=== PATIENT | male | born 1965 | race Caucasian/White ===

== ENCOUNTER → 2021-01-28 | Outpatient (CLI) | payer MEDICAID ==
--- NOTE | 2021-01-30 14:24 | US ---
EXAMINATION TYPE: US kidneys/renal and bladder DATE OF EXAM: 01/28/2021 COMPARISON: NONE CLINICAL HISTORY: 55-year-old male N02.9 recurrent hematuria. TECHNIQUE: Multiple sonographic images of the kidneys and bladder are obtained. FINDINGS: EXAM MEASUREMENTS: Right Kidney: 10.0 x 3.6 x 4.2 cm Left Kidney: 11.5 x 5.6 x 5.3 cm Right Kidney: echogenic lesion measuring 1.2 x 1.1 x 0.9cm not seen on 02/13/2013. Small echogenic st ructure measuring 0.4 x 0.3 x 0.4cm at the upper pole. No hydronephrosis. Dr. Hogue Left Kidney: anechoic area central upper pole measuring 2.5 x 1.6 x 1.7cm, likely parapelvic cyst. No hydronephrosis. Bladder: Partial distention of the bladder limits its evaluation. There is a shadowing dependent hype rechoic structure within measuring 2.7cm IMPRESSION: 1. Shadowing echogenic structure within the bladder measures 2.7 cm, likely bladder calculus. 2. A 4 mm nonobstructive right renal calculus. In addition, there is a 1.2 cm cortical lesion within the right kidney not seen on the 2013 ultrasound. Given the echogenicity, an AML is possible. A hemor rhagic cyst or small early RCC are not excluded at this time. Recommend 3 month follow-up renal mass protocol CT or MRI for further evaluation. 3. No hydronephrosis.
== END | disposition home or self-care (01) ==
LOC: RADUSWWP 13:57
PROVIDERS: ATTEND Family Medicine
DX: N20.0 Calculus of kidney (principal)
CPT/HCPCS: 76770

== ENCOUNTER → 2021-02-15 | Outpatient (CLI) | payer MEDICAID ==
--- NOTE | 2021-02-15 14:51 | CT ---
EXAMINATION TYPE: CT urogram wo/w con DATE OF EXAM: 02/15/2021 COMPARISON: None HISTORY: H/O left flank pain and hematuria x1 month ago. CT DLP: 952.0 mGycm CONTRAST: Performed and without and with IV Contrast, patient injected with 100ml mL of Isovue 300. CT Urography was performed with unenhanced followed by enhanced images of the kidneys, ureters and ur inary bladder. Delayed images were obtained. 3d reconstruction was performed at a separate work sta tion. FINDINGS: KIDNEYS/BLADDER: No hydronephrosis. No nephrolithiasis. There is poor visualization of the left ure ter throughout the course of the examination. Simple appearing cyst midpole right kidney measures 1.2 cm. Mild renal parenchymal thinning upper pole right kidney. Urinary bladder grossly unremarkable. LUNG BASES-: No visible nodule. No infiltrate. LIVER/GB: No calcified gallstones. No space occupying hepatic lesion. Biliary tree is of normal ca liber. PANCREAS: No inflammation. No distinct mass. SPLEEN: No splenic enlargement. No lesion seen. ADRENALS: No nodule. No thickening. BOWEL: Normal appendix. Normal bowel caliber. No inflammation. GENITAL ORGANS: No gross abnormality. LYMPH NODES: No greater than 1cm abdominal or pelvic lymph nodes are appreciated. AORTA: No significant abnormality. OSSEOUS STRUCTURES: No significant abnormality is seen. OTHER: No significant additional abnormality is seen. IMPRESSION: 1. There is poor visualization of the left ureter throughout the course of the examination. Simple ap pearing cyst midpole right kidney measures 1.2 cm. Mild renal parenchymal thinning upper pole right k idney.
== END | disposition home or self-care (01) ==
LOC: RADCTMAIN 10:57
PROVIDERS: ATTEND Urology
DX: N28.1 Cyst of kidney, acquired (principal)
CPT/HCPCS: 74178; 74400; Q9967 ×2

== ENCOUNTER → 2021-02-28 | Outpatient (CLI) | payer MEDICAID ==
[2021-02-28 11:16] LABS: Basophils # (A) 0.1 k/uL (0-0.2); Basophils % (A) 1 %; Eosinophils # (A) 0.2 k/uL (0-0.7); Eosinophils % (A) 4 %; HCT 46.6 % (39.0-53.0); HGB 15.1 gm/dL (13.0-17.5); Lymphocytes # (A) 1.7 k/uL (1.0-4.8); Lymphocytes % (A) 30 %; MCH 29.8 pg (25.0-35.0); MCHC 32.5 g/dL (31.0-37.0); MCV 91.6 fL (80.0-100.0); Mean Platelet Volume 8.2; Monocytes # (A) 0.4 k/uL (0-1.0); Monocytes % (A) 7 %; Neutrophils # (A) 3.2 k/uL (1.3-7.7); Neutrophils % (A) 56 %; Platelet Count 144 k/uL (150-450); RBC 5.09 m/uL (4.30-5.90); RDW 13.4 % (11.5-15.5); WBC 5.7 k/uL (3.8-10.6)
[2021-02-28 11:34] LABS: African American GFR (CKD) >90 (>60 ml/min/1.73 sqM); Anion Gap 5 mmol/L; Blood Urea Nitrogen 20 mg/dL (9-20); Calcium 9.7 mg/dL (8.4-10.2); Carbon Dioxide 31 mmol/L (22-30); Chloride 108 mmol/L (98-107); Glucose 74 mg/dL (74-99); Non-African American GFR(CKD) >90 (>60 ml/min/1.73 sqM); Potassium 4.3 mmol/L (3.5-5.1); Sodium 144 mmol/L (137-145)
[2021-02-28 12:13] LABS: Amorphous Sediment,Urine Rare /hpf; Appearance,Urine Clear (Clear); Bilirubin,Urine Negative (Negative); Blood,Urine Negative (Negative); Color,Urine Yellow; Glucose,Urine (UA) Negative (Negative); Ketones,Urine Negative (Negative); Leukocyte Esterase,Urine Negative (Negative); Mucus,Urine Occasional /hpf; Nitrite,Urine Negative (Negative); Protein,Urine 1+ (Negative); RBC,Urine 1 /hpf (0-5); Specific Gravity,Urine 1.023 (1.001-1.035); Squamous Epithelial Cell,Urine 2 /hpf (0-4); WBC,Urine 1 /hpf (0-5)
== END | disposition home or self-care (01) ==
LOC: LABPAT 10:53
PROVIDERS: ATTEND Urology
DX: Z01.812 Encounter for preprocedural laboratory examination (principal); N21.9 Calculus of lower urinary tract, unspecified; N20.1 Calculus of ureter; R31.0 Gross hematuria
CPT/HCPCS: 36415; 80048; 81001; 85025; 87086

== ENCOUNTER 2021-03-07 12:19 | Day surgery (SDC) | payer MEDICAID ==
[2021-03-03 08:39] VITALS: BMI 21.7
--- NOTE | 2021-03-07 09:43 | P.HPIHPCON ---
History of Present Illness H&P Date: 03/07/21 Chief Complaint: Bladder stone This is 5-year-old male with history of a 2.7 cm bladder stone, he symptomatically secondary to stone. He had CT urogram performed for gross hematuria which Showed evidence of the bladder stone, and slow drainage of contrast from the left collecting system. I discussed with him the option of doing a cystolitholapaxy for his bladder stone, discussed with him the option of doing a retrograde pyelogram at the same time to evaluate the left collecting system, discussed the possibility of performing ureteroscopy there is abnormality on retrograde. Discussed the risk which includes but not limited to bleeding, infection, injury to the bladder, injury to ureter. And she'll the risk and agreed to proceed with cystolitholapaxy and left retrograde pyelogram Consent for Procedure: I have explained the operation/procedure to the patient, including the risks, benefits, side effects, alternative therapies (including not receiving the proposed treatment or service), the likelihood of the patient achieving his/her goals, and potential recuperation problems for the procedure/sedation/analgesia, as well as any blood products, if indicated. I also explained to the patient the risks, benefits and side effects of the alternatives, as well as the risks related to not receiving the proposed procedure, care, treatment, or services. Past Medical History Past Medical History: Sleep Apnea/CPAP/BIPAP Additional Past Medical History / Comment(s): CPAP MACHINE , KIDNEY STONES, History of Any Multi-Drug Resistant Organisms: None Reported Past Surgical History: Back Surgery Past Anesthesia/Blood Transfusion Reactions: No Reported Reaction Smoking Status: Current every day smoker - Past Family History Father Family Medical History: Cancer Medications and Allergies Home Medications Medication Instructions Recorded Confirmed Type No Known Home Medications 03/03/21 03/03/21 History Allergies Allergy/AdvReac Type Severity Reaction Status Date / Time No Known Allergies Allergy Verified 03/03/21 08:10 Surgical - Exam - General well developed, well nourished, no distress, moderate pain - Eyes PERRL, normal ocular movement - ENT normal nares, normal mucosa - Respiratory normal expansion, normal respiratory effort - Abdomen Abdomen: soft, non tender - Psychiatric oriented to time, oriented to person, oriented to place Assessment and Plan Assessment: 65-year-old male with history of a 2.7 cm bladder stone, slow drainage of contrast from left collecting system -Or for cystolitholapaxy, left retrograde
[~2021-03-07 12:19] MED LIST: DEXAMETHASONE SOD PHOSPHATE 4 MG/ML 1 ML VIAL IV ONE; HYDROmorphone 0.5 MG/0.5 ML SYRINGE IVP PRN; LACTATED RINGERS 1,000 ML IV SCH; MIDAZOLAM 2 MG/2 ML VIAL IV PRN; ONDANSETRON 4 MG/2 ML VIAL IVP ONE; SCOPOLAMINE 1.5MG/72HR PATCH TRANSDERM ONE
--- NOTE | 2021-03-07 13:02 | XR ---
KUB HISTORY: Preop bladder stone Frontal KUB and 2 images correlated to prior CT 02/15/2021 Degenerative disc changes, spinal curvature again noted. Metallic density noted in the left lower brittney drant is likely superficial seen on CT along anterior abdominal wall. There is a calculus present wit hin the urinary bladder is approximately 3 cm in greatest dimension. IMPRESSION: Bladder calculus.
[2021-03-07] MEDS ORDERED: GLYCOPYRROLATE 0.2 MG/ML 2 ML VIAL ONE (14:43)
[2021-03-07] MEDS ORDERED: SUCCINYLCHOLINE CHLORIDE 100 MG/5 ML SYR IV ONE (14:43)
[2021-03-07] MEDS ORDERED: MIDAZOLAM 2 MG/2 ML VIAL ONE (14:43)
[2021-03-07] MEDS ORDERED: fentaNYL (PF) 50 MCG/ML 2 ML AMP ONE (14:43)
[2021-03-07] MEDS ORDERED: PROPOFOL 10 MG/ML 20 ML VIAL IV ONE (14:43)
[2021-03-07] MEDS ORDERED: IOPAMIDOL-370 50ML BTL MISCELLANE ONE (15:05)
[2021-03-07] MEDS ORDERED: LACTATED RINGERS 1,000 ML IV ONE (15:30)
--- NOTE | 2021-03-07 16:22 | P.OP ---
Date of Procedure: 03/07/21 Preoperative Diagnosis: Bladder stone, microscopic hematuria Postoperative Diagnosis: Same Procedure(s) Performed: Cystoscopy, cystolitholapaxy (greater than 2.5 cm), left retrograde pyelogram Implants: None Anesthesia: BOBBYA Surgeon: Kelvin Balderas Estimated Blood Loss (ml): 20 Pathology: other (bladder stone) Condition: stable Disposition: PACU Indications for Procedure: This is 55-year-old male with history of a 2.7 cm bladder stone, he symptomatica lly secondary to stone. He had CT urogram performed for gross hematuria which Showed evidence of the bladder stone, and slow drainage of contrast from the left collecting system. I discussed with him the option of doing a cystolitholapaxy for his bladder stone, discussed with him the option of doing a retrograde pyelogram at the same time to evaluate the left collecting system, discussed the possibility of performing ureteroscopy there is abnormality on retrograde. Discussed the risk which includes but not limited to bleeding, infection, injury to the bladder, injury to ureter. And she'll the risk and agreed to proceed with cystolitholapaxy and left retrograde pyelogra Operative Findings: Normal left retrograde pyelogram, J hooking of the distal ureter, large bladder stone Description of Procedure: Patient was brought to the operating room, general anesthesia was induced. He was prepped and draped in sterile fashion a placement dorsal lithotomy position. Cystoscopy fitted with 21-Persian sheath was inserted per urethra, cystoscopy was performed which showed evidence of a large bladder stone, and trilobar hyperplasia. No bladder tumors or abnormal lesions were seen. Left ureteral orifice was intubated with a 6-Persian open-ended catheter, retrograde Polygram was performed on the left side which showed J hooking of the distal ureter but no filling defect or hydronephrosis along the course of the ureter. Delayed images were obtained which showed adequate drainage of contrast. At this time attention was then carried to the bladder stone, using the holmium laser the bladder stone was fragmented into small fragments. Fragments were removed using the Viktoriya evacuator, repeat cystoscopy showed no sizable fragments or injury to the bladder. The bladder was emptied and of the case. Patient tolerated the procedure well was taken to PACU in stable condition
[2021-03-07 16:29] VITALS: TEMP 97.2
--- NOTE | 2021-03-07 16:43 | FL ---
EXAMINATION TYPE: FL urography retrograde DATE OF EXAM: 03/07/2021 COMPARISON: CT urogram February 15, 2021 HISTORY: Bladder calculus TECHNIQUE: Fluoroscopy. FINDINGS: Fluoroscopic guidance was provided during left-sided retrograde pyelogram and bladder ston e treatment procedure performed by Dr. Ray. A total of 46 seconds of fluoroscopic time was utiliz ed during the procedure and 1 spot images was acquired. Sagittal images acquired shows left ureter in jection at UVJ. IMPRESSION: As Above.
[2021-03-07 17:57] VITALS: BP 138/82; PULSE 55; RESP 16
== END 2021-03-07 18:17 | disposition home or self-care (01) ==
LOC: OR 12:19
PROVIDERS: ATTEND Urology
DX: N21.0 Calculus in bladder (principal); G47.30 Sleep apnea, unspecified; F17.210 Nicotine dependence, cigarettes, uncomplicated; Z87.442 Personal history of urinary calculi; Z99.89 Dependence on other enabling machines and devices
CPT/HCPCS: 82365; 74420; 74018; 52318; 52005; C1758; C1769; J2250; J1100; J0690; J2405; J3010; J0330; J2704; Q9967